=== PATIENT | male | born 2000 | race Asian ===

== ENCOUNTER 2022-05-15 11:31 | Inpatient (IN) ==
[2022-05-15] MEDS ORDERED: Ondansetron 4 mg VIAL 2 MG/ML 2 ml VIAL IV ONE ×2 (11:35→13:04)
[2022-05-15] MEDS ORDERED: Iodixanol (CONTRAST) 320 MG/ML 100 ML SDV IV ONE (11:49)
[2022-05-15 12:04] LABS: ABS Lymphocytes 1.3 10^3/ul (1.0-4.8); ABS Monocytes 0.4 10^3/ul (0-0.8); ABS Neutrophils 4.3 10^3/ul (1.5-7.7); Eosinophil % 0.5 %; Hematocrit 41 % (42-52); Hemoglobin 14.2 g/dL (14.0-18.0); Lymphocyte % 21.6 %; Mean Corpuscular HGB Conc 34 g/dL (31-36); Mean Corpuscular Hemoglobin 30 pg (27-31); Mean Corpuscular Volume 88 fL (80-94); Mean Platelet Volume 7.8 fL (7.4-10.4); Platelet Count 204 10^3/uL (150-450); Red Blood Count 4.72 10^6 /uL (4.18-5.48); Red Cell Distribution Width 13 % (10-15); White Blood Count 6.2 10^3/uL (3.5-10.8)
[2022-05-15 12:24] LABS: Activated Partial Thrombo Time 34.8 seconds (26.0-38.0); INR 1.36 (0.89-1.11)
[2022-05-15 12:46] LABS: ALT 18 U/L (7-52); AST 23 U/L (13-39); Albumin 4.2 g/dL (3.2-5.2); Albumin/Globulin Ratio 1.5 (1-3); Alkaline Phosphatase 81 U/L (35-149); Anion Gap 6 mmol/L (2-11); Blood Urea Nitrogen 9 mg/dL (6-24); CO2 Carbon Dioxide 26 mmol/L (22-32); Calcium 8.8 mg/dL (8.6-10.3); Chloride 101 mmol/L (101-111); Cholesterol 120 mg/dL; Globulin 2.8 g/dL (2-4); Glucose 135 mg/dL (70-100); HDL Cholesterol 21.1 mg/dL; LDL Cholesterol 73 mg/dL; Potassium 4.2 mmol/L (3.5-5.0); Sodium 133 mmol/L (135-145); Triglycerides 131 mg/dL; eGFR CKD-EPI 132.8 (>60)
[2022-05-15] MEDS ORDERED: Gadoteridol (CONTRAST) 279.3 MG/ML 10 ML IV ONE (13:46)
[2022-05-15] MEDS ORDERED: Lidocaine 1% VIAL 10 MG/ML VIAL ONE (14:26)
[2022-05-15 14:50] LABS: Vitamin B12 314 pg/mL (180-914)
[2022-05-15 15:00] LABS: Body Fluid Source Cerebral Spinal
[2022-05-15] MEDS ORDERED: Lactated Ringers 1000 ml BAG 1,000 ML IV ONE (15:02)
[2022-05-15 15:27] LABS: CSF Glucose 64 mg/dL (40-70)
[2022-05-15 15:43] LABS: Alcohol, S < 13 mg/dL (<13); CRP High Sensitivity 6.79 mg/L (<2.00)
[2022-05-15 16:00] LABS: Body Fluid Appearance Clear; Body Fluid Color Colorless; CSF Tube # 1
[2022-05-15 16:01] LABS: Body Fluid Appearance Clear; Body Fluid Color Colorless; CSF Tube # 4
[2022-05-15 16:06] LABS: Erythrocyte Sed Rate 10 mm/Hr (0-14)
[2022-05-15 16:32] LABS: Body Fluid Band 1 %; Body Fluid Mono 10 %; Body Fluid Total Cells Counted 200
[2022-05-15 16:36] LABS: Body Fluid Mono 10 %; Body Fluid Total Cells Counted 105; Body Fluid WBC 20 /mcL
[2022-05-15 16:41] LABS: Body Fluid WBC 44 /mcL
[2022-05-15] MEDS ORDERED: methylPREDNISolone SOD SUCC 1000 MG ML VIAL IVPB ONE (16:49)
[2022-05-15] MEDS ORDERED: Ampicillin ADVAN 1 GM in NS 0.9% 50 ML 50 ML IVPB SCH (17:00)
[2022-05-15 17:47] LABS: TSH Ultra Thyroid Stim Horm 0.45 mcIU/mL (0.34-5.60)
[2022-05-15] MEDS ORDERED: Ampicillin ADVAN 2 GM in NS 0.9% 100 ML 100 ML IVPB SCH (18:00)
[2022-05-15] MEDS: Ondansetron 4 mg VIAL 2 MG/ML 2 ml VIAL IV PRN ×2 (18:22→22:50)
[2022-05-15 18:35] LABS: Thyroid Peroxidase Antibodies 0.94 IU/mL (<9)
[2022-05-15] MEDS ORDERED: Lactated Ringers 1000 ml BAG 1,000 ML IV SCH (19:00)
[2022-05-15] MEDS: NS 0.9% IV SCH (19:15)
[2022-05-15] MEDS: Acyclovir IV 700 MG in NS 0.9% 100 ml BAG 100 ML IVPB SCH (19:16)
[2022-05-15 19:50] LABS: Urine Appearance Clear; Urine Bilirubin Negative (Negative); Urine Blood Negative (Negative); Urine Color Yellow; Urine Glucose Negative (Negative); Urine Ketones 3+ (80mg/dL) (Negative); Urine Nitrite Negative (Negative); Urine Protein Negative (Negative); Urine Specific Gravity 1.015 (1.005-1.030); Urine Urobilinogen 0.2 (Negative) (Negative)
[2022-05-15] MEDS: cefTRIAXone 2 gm/50 mL D5W 2 GM/50 ML BAG IV SCH (20:27)
[2022-05-15] MEDS: Ampicillin ADVAN 2 GM in NS 0.9% 100 ML 100 ML IVPB SCH (20:58)
[2022-05-16] MEDS: Ampicillin ADVAN 2 GM in NS 0.9% 100 ML 100 ML IVPB SCH ×7 (00:18→23:54)
[2022-05-16] MEDS: Acyclovir IV 700 MG in NS 0.9% 100 ml BAG 100 ML IVPB SCH ×3 (01:30→16:00)
[2022-05-16] MEDS: NS 0.9% IV SCH ×2 (05:46→18:41)
[2022-05-16 05:58] LABS: ABS Monocytes 0.6 10^3/ul (0-0.8); ABS Neutrophils 3.1 10^3/ul (1.5-7.7); Eosinophil % 0.8 %; Hematocrit 42 % (42-52); Hemoglobin 14.2 g/dL (14.0-18.0); Lymphocyte % 34.7 %; Mean Corpuscular HGB Conc 34 g/dL (31-36); Mean Corpuscular Hemoglobin 29 pg (27-31); Mean Corpuscular Volume 87 fL (80-94); Mean Platelet Volume 7.8 fL (7.4-10.4); Nucleated Red Blood Cells % 0.2; Platelet Count 238 10^3/uL (150-450); Red Blood Count 4.83 10^6 /uL (4.18-5.48); Red Cell Distribution Width 13 % (10-15); White Blood Count 5.9 10^3/uL (3.5-10.8)
[2022-05-16 06:14] LABS: C Reactive Protein 5.28 mg/L (<8.01); Calcium 9.1 mg/dL (8.6-10.3); Potassium 4.5 mmol/L (3.5-5.0); eGFR CKD-EPI 132.3 (>60)
[2022-05-16] MEDS ORDERED: methylPREDNISolone SOD SUCC 1,000 MG in NS 0.9% 250 ml 250 ML IVPB ONE (09:00)
[2022-05-16] MEDS: cefTRIAXone 2 gm/50 mL D5W 2 GM/50 ML BAG IV SCH ×2 (12:53→20:59)
[2022-05-16] MEDS: Ondansetron 4 mg VIAL 2 MG/ML 2 ml VIAL IV SCH ×4 (12:53→21:27)
[2022-05-16] MEDS ORDERED: Scopolamine 1 mg/72hr PATCH TRANSDERM SCH (14:00)
[2022-05-16] MEDS ORDERED: Ondansetron 4 mg VIAL 2 MG/ML 2 ml VIAL IV PRN (21:23)
[2022-05-17] MEDS: Acyclovir IV 700 MG in NS 0.9% 100 ml BAG 100 ML IVPB SCH ×3 (00:42→17:07)
[2022-05-17] MEDS: NS 0.9% IV SCH ×3 (02:46→23:31)
[2022-05-17] MEDS: Ampicillin ADVAN 2 GM in NS 0.9% 100 ML 100 ML IVPB SCH ×2 (04:14→13:33)
[2022-05-17 05:51] LABS: ABS Lymphocytes 0.9 10^3/ul (1.0-4.8); ABS Monocytes 0.1 10^3/ul (0-0.8); Hematocrit 42 % (42-52); Hemoglobin 14.3 g/dL (14.0-18.0); Lymphocyte % 17.8 %; Mean Corpuscular HGB Conc 34 g/dL (31-36); Mean Corpuscular Hemoglobin 30 pg (27-31); Mean Corpuscular Volume 87 fL (80-94); Mean Platelet Volume 7.7 fL (7.4-10.4); Nucleated Red Blood Cells % 0.1; Platelet Count 312 10^3/uL (150-450); Red Blood Count 4.83 10^6 /uL (4.18-5.48); Red Cell Distribution Width 13 % (10-15)
[2022-05-17 06:24] LABS: Calcium 9.3 mg/dL (8.6-10.3); Magnesium 1.9 mg/dL (1.9-2.7); Potassium 4.2 mmol/L (3.5-5.0); eGFR CKD-EPI 133.3 (>60)
[2022-05-17 07:47] LABS: Albumin 4.1 g/dL (3.2-5.2); Albumin/Globulin Ratio 1.5 (1-3); Direct Bilirubin 0.1 mg/dL (0.03-0.18); Globulin 2.8 g/dL (2-4); Indirect Bilirubin 0.4 mg/dL (0.3-1.0); Total Bilirubin 0.5 mg/dL (0.2-1.0); Total Protein 6.9 g/dL (6.4-8.9)
[2022-05-17] MEDS ORDERED: methylPREDNISolone SOD SUCC 1,000 MG in NS 0.9% 250 ml 250 ML IVPB ONE (10:00)
[2022-05-17] MEDS: cefTRIAXone 2 gm/50 mL D5W 2 GM/50 ML BAG IV SCH ×2 (10:38→13:33)
[2022-05-18] MEDS: Acyclovir IV 700 MG in NS 0.9% 100 ml BAG 100 ML IVPB SCH ×3 (00:50→17:22)
[2022-05-18 06:26] LABS: ABS Lymphocytes 0.9 10^3/ul (1.0-4.8); ABS Monocytes 0.5 10^3/ul (0-0.8); ABS Neutrophils 8.8 10^3/ul (1.5-7.7); Hematocrit 40 % (42-52); Hemoglobin 13.5 g/dL (14.0-18.0); Lymphocyte % 8.6 %; Mean Corpuscular HGB Conc 34 g/dL (31-36); Mean Corpuscular Hemoglobin 29 pg (27-31); Mean Corpuscular Volume 87 fL (80-94); Mean Platelet Volume 7.8 fL (7.4-10.4); Platelet Count 337 10^3/uL (150-450); Red Blood Count 4.64 10^6 /uL (4.18-5.48); Red Cell Distribution Width 14 % (10-15); White Blood Count 10.2 10^3/uL (3.5-10.8)
[2022-05-18 07:01] LABS: Magnesium 2.2 mg/dL (1.9-2.7); Potassium 4.1 mmol/L (3.5-5.0); eGFR CKD-EPI 139.9 (>60)
[2022-05-18] MEDS: NS 0.9% IV SCH ×2 (10:02→21:40)
[2022-05-18] MEDS: cefTRIAXone 2 gm/50 mL D5W 2 GM/50 ML BAG IV SCH (10:02)
[2022-05-18] MEDS ORDERED: methylPREDNISolone SOD SUCC 1,000 MG in NS 0.9% 250 ml 250 ML IVPB ONE (12:00)
[2022-05-18] MEDS ORDERED: Atropine 1 MG/ML INJ 1 ML VIAL IV PUSH PRN (14:05)
[2022-05-18 16:42] LABS: Anaplasma phagocytophilum Negative (Negative); B. miyamotoi PCR, B Negative (Negative); Babesia divergens/MO-1 Negative (Negative); Babesia ducani Negative (Negative); Ehrlichia chaffeensis Negative (Negative); Ehrlichia ewingii/canis Negative (Negative); Ehrlichia muris eauclairensis Negative (Negative)
[2022-05-19] MEDS: Acyclovir IV 700 MG in NS 0.9% 100 ml BAG 100 ML IVPB SCH ×3 (01:02→16:48)
[2022-05-19 05:46] LABS: ABS Lymphocytes 0.9 10^3/ul (1.0-4.8); ABS Monocytes 0.3 10^3/ul (0-0.8); ABS Neutrophils 7.6 10^3/ul (1.5-7.7); Hematocrit 40 % (42-52); Hemoglobin 13.4 g/dL (14.0-18.0); Lymphocyte % 9.8 %; Mean Corpuscular HGB Conc 33 g/dL (31-36); Mean Corpuscular Hemoglobin 29 pg (27-31); Mean Corpuscular Volume 87 fL (80-94); Mean Platelet Volume 7.6 fL (7.4-10.4); Platelet Count 356 10^3/uL (150-450); Red Blood Count 4.63 10^6 /uL (4.18-5.48); Red Cell Distribution Width 14 % (10-15); White Blood Count 8.7 10^3/uL (3.5-10.8)
[2022-05-19 06:08] LABS: Calcium 8.7 mg/dL (8.6-10.3); Magnesium 2.4 mg/dL (1.9-2.7); Potassium 3.8 mmol/L (3.5-5.0); eGFR CKD-EPI 141.9 (>60)
[2022-05-19] MEDS: NS 0.9% IV SCH (08:43)
[2022-05-19 10:03] LABS: Albumin 3.9 g/dL (3.2-5.2)
[2022-05-19] MEDS: cefTRIAXone 2 gm/50 mL D5W 2 GM/50 ML BAG IV SCH (10:15)
[2022-05-19] MEDS ORDERED: Lidocaine 1% VIAL 10 MG/ML VIAL INJ ONE (11:25)
[2022-05-19] MEDS ORDERED: Heparin 5000 UNITS/ML 1 mL VIAL SUBCUT SCH (14:00)
[2022-05-19 15:25] LABS: IgG Immunoblot Negative (Negative); IgM Immunoblot Positive (Negative)
[2022-05-19 16:56] LABS: NMO/AQP4 IgG Negative (Negative)
[2022-05-20] MEDS: Acyclovir IV 700 MG in NS 0.9% 100 ml BAG 100 ML IVPB SCH ×3 (01:18→16:45)
[2022-05-20 06:10] LABS: ABS Lymphocytes 2.2 10^3/ul (1.0-4.8); ABS Monocytes 0.6 10^3/ul (0-0.8); ABS Neutrophils 4.3 10^3/ul (1.5-7.7); Eosinophil % 0.1 %; Hematocrit 41 % (42-52); Hemoglobin 13.7 g/dL (14.0-18.0); Lymphocyte % 30.6 %; Mean Corpuscular HGB Conc 33 g/dL (31-36); Mean Corpuscular Hemoglobin 29 pg (27-31); Mean Corpuscular Volume 87 fL (80-94); Mean Platelet Volume 7.2 fL (7.4-10.4); Nucleated Red Blood Cells % 0.1; Platelet Count 352 10^3/uL (150-450); Red Blood Count 4.76 10^6 /uL (4.18-5.48); Red Cell Distribution Width 14 % (10-15); White Blood Count 7.1 10^3/uL (3.5-10.8)
[2022-05-20 06:20] LABS: INR 1.35 (0.89-1.11)
[2022-05-20 07:05] LABS: Calcium 8.3 mg/dL (8.6-10.3); eGFR CKD-EPI 141.2 (>60)
[2022-05-20] MEDS: NS 0.9% IV SCH (07:41)
[2022-05-20] MEDS ORDERED: Lidocaine 1% VIAL 10 MG/ML VIAL ONE (09:12)
[2022-05-20 10:34] LABS: Body Fluid Source Cerebral Spinal
[2022-05-20 10:51] LABS: CSF Glucose 59 mg/dL (40-70)
[2022-05-20 12:11] LABS: Body Fluid Appearance Clear; Body Fluid Color Colorless; CSF Tube # 4
[2022-05-20 12:12] LABS: Body Fluid WBC 0 /mcL
[2022-05-20 12:18] LABS: Body Fluid Total Cells Counted 0
[2022-05-20 12:25] LABS: Anti Streptolysin O Antibody 1550 IU/mL (0 - 530)
[2022-05-20] MEDS: cefTRIAXone 2 gm/50 mL D5W 2 GM/50 ML BAG IV SCH (12:29)
[2022-05-20] MEDS ORDERED: methylPREDNISolone SOD SUCC 1,000 MG in NS 0.9% 250 ml 250 ML IVPB ONE (13:00)
[2022-05-20 14:41] LABS: Parvovirus (B19) IgG Antibody Negative (Negative); Parvovirus (B19) IgM Antibody Negative (Negative)
[2022-05-20 16:32] VITALS: BP 105/51
[2022-05-21 13:47] LABS: HSV 1 PCR, CSF Negative (Negative); HSV 2 PCR, CSF Negative (Negative)
[2022-05-22 15:03] LABS: Phospholipid Ab IgG 24.2 GPL; Phospholipid Ab IgM, S 86.9 MPL
[2022-05-22 17:48] LABS: Varicella Zoster Result Negative (Negative); Varicella Zoster Source CSF
[2022-05-22 21:09] LABS: Enterovirus Source CSF
[2022-05-28 10:12] LABS: AGNA-1, CSF Negative titer (<1:2); ANNA-1, CSF Negative titer (<1:2); ANNA-2, CSF Negative titer (<1:2); ANNA-3, CSF Negative titer (<1:2); Amphiphysin Ab, CSF Negative titer (<1:2); CRMP-5-IgG, CSF Negative titer (<1:2); PCA-1, CSF Negative titer (<1:2); PCA-2, CSF Negative titer (<1:2); PCA-Tr, CSF Negative titer (<1:2)
[2022-05-28 18:13] LABS: ANNA-1, S Negative titer (<1:240); ANNA-2, S Negative titer (<1:240); DPPX Ab IFA, S Negative (Negative); GFAP IFA, S Negative (Negative); NIF IFA, S Negative (Negative); mGluR1 Ab IFA, S Negative (Negative)
== END 2022-05-20 18:16 | disposition short-term general hospital (02) | DRG 23 ==
LOC: ED 11:31 → EDHOLD 11:31 → MEDTELE 17:59 → SUATTDRO 05-16 10:00
PROVIDERS: ADMIT Internal Medicine; ATTEND Internal Medicine